=== PATIENT | male | born 1975 | race Caucasian/White ===

== ENCOUNTER 2019-12-30 19:16 | Emergency (ER) | payer OTHER | END 2019-12-30 20:33 | disposition other institution (70) | LOC: ED 19:16 | DX: Z02.89 Encounter for other administrative examinations (principal) ==

== ENCOUNTER 2019-12-30 19:16 | Emergency (ER) | payer SELFPAY ==
[~2019-12-30] VITALS: Ht 170.2 cm; Wt 65.8 kg
[2019-12-30 19:34] VITALS: BP 138/94; Ht 170.2 cm; Wt 65.8 kg
== END 2019-12-30 20:33 | disposition other institution (70) ==
LOC: ED 19:16
DX: S62.622 Displaced fracture of middle phalanx of right middle finger (principal); X58.XXXD Exposure to other specified factors, subsequent encounter
CPT/HCPCS: Q0092